=== PATIENT | male | born 1975 | race Caucasian/White ===

== ENCOUNTER 2019-05-29 19:54 | Emergency (ER) | payer OTHER ==
[~2019-05-29] VITALS: Ht 185.4 cm; Wt 83.9 kg
[~2019-05-29 19:54] MED LIST: DOXYCYCLINE 10100 MG PO; DULCOLAX5 MG PO; FLOMAX0.4 MG PO; HYDROCODONE-AP1 EAC6 PO; MILK OF MA400 MG/5 M PO; NOHOMEMEDICATIONS; PERCOCET 10-321 EAC1 PO; PROTONIX40 M1 PO; ZOFRAN ODT4 MG PO
[2019-05-29] MEDS ORDERED: CLEOCIN HCL150 MG PO (20:37)
[2019-05-29 21:02] VITALS: BP 142/74
== END 2019-05-29 21:02 | disposition home or self-care (01) ==
LOC: M.ERS 19:54
DX: L03.116 Cellulitis of left lower limb (principal); G89.29 Other chronic pain; R10.9 Unspecified abdominal pain